=== PATIENT | female | born 1965 | race American Indian/Alaskan Native ===

== ENCOUNTER 2017-06-11 11:26 | Emergency (ER) | payer BC ==
[2017-06-11] MEDS ORDERED: DUONEB *Not for PRN Use IH ONE (14:27)
[2017-06-11 14:30] LABS: Bilirubin,Urine NEG (Negative); Blood,Urine NEG (Negative); Color,Urine Yellow (Yellow); Mucus,Urine FEW /HPF; Nitrite,Urine NEG (Negative); Protein,Urine <15 mg/dL mg/dL (Negative); Urobilinogen,Urine < 2.0 mg/dL (<2.0)
[2017-06-11 14:31] LABS: WBC,Urine < 1.0 /HPF (0.0-6.0)
--- NOTE | 2017-06-11 14:38 | Emergency Department Report ---
Minor Respiratory - HPI Chief Complaint: Upper Respiratory Infection Stated Complaint: ccc. rn on tely Time Seen by Provider: 06/11/17 14:22 Duration: 1 Day Pain Location: Chest Severity: mild Minor Respiratory: Yes Rhinorrhea, Yes Sore Throat, Yes Able to Tolerate Fluids , Yes Cough, Yes Sick Contacts, No Ear Pain, No Hemoptysis, No Chest Pain, No Shortness of Breath, No Fever ED Review of Systems ROS: Stated complaint: CHEST PAIN, COUGH, CONGESTION Other details as noted in HPI Comment: All other systems reviewed and negative Constitutional: see HPI. denies: fever Eyes: as per HPI ENT: as per HPI Respiratory: see HPI, cough Cardiovascular: as per HPI Endocrine: no symptoms reported ED Past Medical Hx - Past Medical History Previous Medical History?: No - Surgical History Additional Surgical History: C SECTION - Social History Smoking Status: Never Smoker Substance Use Type: None - Medications Home Medications: Home Medications Medication Instructions Recorded Confirmed Last Taken Type Benzonatate [Tessalon Perles] 100 mg PO Q8HR PRN #20 capsule 06/11/17 Unknown Rx Cephalexin [Keflex] 500 mg PO Q12HR #20 cap 06/11/17 Unknown Rx Fluticasone [Flonase] 1 spray NS QDAY #1 bottle 06/11/17 Unknown Rx predniSONE [Deltasone] 20 mg PO DAILY #5 tablet 06/11/17 Unknown Rx Minor Respiratory Exam - Exam General: Vital signs noted. No distress. Alert and acting appropriately. HEENT: Yes Pharyngeal Erythema, Yes Moist Mucous Membranes, Yes Frontal Tenderness, Yes Maxillary Tenderness, No Pharyngeal Exudates, No Rhinorrhea, No Conjuctival Injection Ear: Left TM Erythema, Neither TM Bulge, Neither EAC Pain, Neither EAC Discharge Neck: Yes Supple, No Adenopathy Lungs: Yes Good Air Exchange, Yes Ronchi, Yes Cough, No Wheezes, No Stridor, No Labored Respirations, No Retractions, No Use of Accessory Muscles, No Other Abnormal Lung Sounds Heart: Yes Regular, No Murmur Abdomen: Yes Normal Bowel Sounds, No Tenderness, No Peritoneal Signs Skin: No Rash, No Edema Neurologic: Alert and oriented, no deficits. Musculoskeletal: Unremarkable. ED Course Vital Signs 06/11/17 13:00 Temperature 98.8 F Pulse Rate 68 Respiratory 20 Rate Blood Pressure 181/94 O2 Sat by Pulse 99 Oximetry - Reevaluation(s) Reevaluation #1: 06/11/17 to er w urt s/s pt is rn non toxic nonill appearing Reevaluation #2: 06/11/17 15:18 rt called 06/11/17 17:16 feeling better p meds and rt resting quietly updated on findings and plan of care flu neg xray nap vss dc home w dc poc ED Medical Decision Making - Radiology Data Radiology results: report reviewed, image reviewed - Medical Decision Making see note - Differential Diagnosis ro flu v pna v urti in complex care nurse practitioner attestation.: If time is entered above; I have spent that time in minutes in the direct care of this critically ill patient, excluding procedure time. ED Disposition Clinical Impression: Upper respiratory infection, Cough Disposition: DC- TO HOME OR SELFCARE Is pt being admited?: No Does the pt Need Aspirin: No Condition: Stable Instructions: Upper Respiratory Infection (ED), Acute Bronchitis (ED) Additional Instructions: rest hydrate well motrin or tylenol for pain or fever meds as ordered today follow up with PCP on Tuesday good handwashing Prescriptions: Benzonatate [Tessalon Perles] 100 mg PO Q8HR PRN #20 capsule PRN Reason: Cough Cephalexin [Keflex] 500 mg PO Q12HR #20 cap Fluticasone [Flonase] 1 spray NS QDAY #1 bottle predniSONE [Deltasone] 20 mg PO DAILY #5 tablet Referrals: RJ MEYER MD [Primary Care Provider] - 3-5 Days ALEXANDER REILLY MD [Staff Physician] - 3-5 Days Time of Disposition: 15:45
--- NOTE | 2017-06-11 15:00 | XRay Report ---
FINAL REPORT PROCEDURE: XR CHEST ROUTINE 2V TECHNIQUE: AP and lateral chest radiographs were obtained. CPT 17052 HISTORY: Upper Respiratory Infection COMPARISON: No prior studies are available for comparison. FINDINGS: Heart size upper normal. Pulmonary vasculature appears normal. No evidence of pulmonary edema pleural effusion infiltrate or mass. No acute bony abnormalities are identified. IMPRESSION: Heart size upper normal. No acute abnormalities are identified..
[2017-06-11 17:21] VITALS: BP 152/79
== END 2017-06-11 17:21 | disposition home or self-care (01) ==
LOC: ED 11:26
DX: J06.9 Acute upper respiratory infection, unspecified (principal)
CPT/HCPCS: 71046; 81001; 87400; 93005; 93010; 94640; 96372; 99283; J2930

== ENCOUNTER 2017-08-26 08:17 | Outpatient (CLI) | payer BC ==
[2017-08-26 11:03] LABS: Basophils # (Auto) 0.1 K/mm3 (0.0-0.1); Basophils % (Auto) 2.1 % (0.0-1.8); Eosinophils % (Auto) 0.6 % (0.0-4.3); Hematocrit 26.5 % (30.3-42.9); Hemoglobin 8.1 gm/dl (10.1-14.3); Lymphocytes % (Auto) 29.7 % (13.4-35.0); Mean Corpuscular HGB Conc 31 % (30-34); Monocytes # (Auto) 0.5 K/mm3 (0.0-0.8); Monocytes % (Auto) 7.3 % (0.0-7.3); Platelet Count 495 K/mm3 (140-440); Red Blood Count 4.06 M/mm3 (3.65-5.03)
[2017-08-26 11:04] LABS: Mean Corpuscular Hemoglobin 20 pg (28-32); Mean Corpuscular Volume 65 fl (79-97); Red Cell Distribution Width 20.4 % (13.2-15.2)
[2017-08-26 11:19] LABS: Alanine Aminotransferase 10 units/L (7-56); Albumin 4.2 g/dL (3.9-5); BUN/Creatinine Ratio 20; Blood Urea Nitrogen 12 mg/dL (7-17); Calcium 8.9 mg/dL (8.4-10.2); Chol/HDL Ratio 3.69 %; HDL Cholesterol 59 mg/dL (40-59); Hemolysis Index 0; LDL Cholesterol,Direct 151 mg/dL (50-130)
--- NOTE | 2017-08-26 15:24 | Mammography Report ---
BILATERAL DIGITAL SCREENING MAMMOGRAM with CAD: 08/26/17 CLINICAL: Routine screening. COMPARISON:None available. However, a prior mammogram was apparently done at [facility]. FINDINGS: The breasts are heterogeneously dense, which may obscure small masses. Left asymmetries require comparison with a prior mammogram or additional imaging.No architectural distortion or suspicious calcifications.The left breast is negative. IMPRESSION: Left asymmetries requiring further evaluation. BI-RADS CATEGORY: 0 -- Additional Evaluation Required RECOMMENDATION: Comparison with a previous mammogram. We will attempt to obtain a prior mammogram for comparison. If we do not obtain a prior mammogram within 30 days, a revised report will be issued recommending a recall for additional imaging. Please be advised that the patient should not schedule an appointment for return until adequate time (at least 2 weeks) has passed for us to obtain the prior mammogram. ACR BI-RADS MAMMOGRAPHIC CODES: 0 = Needs additional imaging evaluation; 1 = Negative; 2 = Benign; 3 = Probably benign; 4 = Suspicious; 5 = Malignant; 6 = Known biopsy-proven malignancy COMMENT: 1. Dense breast tissue, i.e., adenosis, fibrocystic changes, etc., may obscure an underlying neoplasm. 2. Approximately 10% of cancers are not detected with mammography. 3. A negative mammography report should not delay biopsy if a clinically suspicious mass is present. COMMENT: Patient follow-up letters are generated via our [employer] application.
== END 2017-08-26 08:18 | disposition home or self-care (01) ==
LOC: MAMMO 08:17
PROVIDERS: ATTEND Family Medicine
DX: Z12.31 Encounter for screening mammogram for malignant neoplasm of breast (principal)
CPT/HCPCS: 36415; 77067; 80053; 80061; 84443; 85025

== ENCOUNTER 2017-10-21 14:09 | Outpatient (CLI) | payer BC ==
--- NOTE | 2017-10-22 15:11 | XRay Report ---
FINAL REPORT EXAM: XR CHEST ROUTINE 2V HISTORY: COUGH, CHEST PAIN COMPARISON: 06/11/2017 TECHNIQUE: Frontal and lateral views of the chest. FINDINGS: The cardiomediastinal silhouette is normal in appearance. The lungs are clear without focal consolidation. There is no pleural effusion or pneumothorax. There is no acute soft tissue or osseous abnormality. IMPRESSION: No acute cardiopulmonary disease.
== END 2017-10-21 14:10 | disposition home or self-care (01) ==
LOC: XRAY 14:09
PROVIDERS: ATTEND Family Medicine
DX: R07.89 Other chest pain (principal); R05 Cough
CPT/HCPCS: 71046

== ENCOUNTER 2021-01-12 12:37 | Emergency (ER) | payer OTHER ==
[2021-01-12] MEDS ORDERED: ASPIRIN 325 MG TAB PO ONE (12:49)
[2021-01-12 12:53] VITALS: BP 158/83
--- NOTE | 2021-01-12 12:55 | Emergency Department Report ---
Blank Doc - Documentation Documentation: 55-year-old female that chest pain and tightness in her chest. 1- This is a initial triage assessment/medical screening only. Full assessment and work-up will be completed once the patient is in proper hospital gown, ED bed and in a private room setting. This initial assessment/diagnostic orders/clinical plan/ treatment(s) is/are subject to change based on pt's health status, clinical progression and re-assessment by fellow clinical providers in the ED. Further treatment and workup at subsequent clinical providers discretion. Patient/guardians urged not to elope from ED as their condition may be serious if not clinically assessed and managed. 2-cardiac work-up
--- NOTE | 2021-01-12 13:14 | XRay Report ---
CHEST 2 VIEWS INDICATION: cp. COMPARISON: 10/21/2017 FINDINGS: SUPPORT DEVICES: None. HEART: Within normal limits. LUNGS/PLEURA: No acute air space or interstitial disease. No pneumothorax. ADDITIONAL FINDINGS: None. IMPRESSION: 1. No acute findings. Signer Name: Vitor Lopez MD Signed: 01/12/2021 1:09 PM Workstation Name: [id number]
[2021-01-12 14:23] LABS: INR 1.04 (0.87-1.13)
[2021-01-12 14:24] LABS: Partial Thromboplastin Time 30.6 Sec. (24.2-36.6)
[2021-01-12 14:25] LABS: Basophils # (Auto) 0.1 K/mm3 (0.0-0.1); Basophils % (Auto) 1.3 % (0.0-1.8); Eosinophils # (Auto) 0.1 K/mm3 (0.0-0.4); Eosinophils % (Auto) 0.9 % (0.0-4.3); Hematocrit 38.1 % (30.3-42.9); Hemoglobin 12.6 gm/dl (10.1-14.3); Lymphocytes # (Auto) 2.2 K/mm3 (1.2-5.4); Mean Corpuscular HGB Conc 33 % (30-34); Mean Corpuscular Volume 90 fl (79-97); Monocytes # (Auto) 0.5 K/mm3 (0.0-0.8); Monocytes % (Auto) 7.4 % (0.0-7.3); Platelet Count 349 K/mm3 (140-440); Red Blood Count 4.22 M/mm3 (3.65-5.03); Red Cell Distribution Width 14.5 % (13.2-15.2)
[2021-01-12 14:36] LABS: Alanine Aminotransferase 11 units/L (7-56); Albumin 4.3 g/dL (3.9-5); BUN/Creatinine Ratio 16; Blood Urea Nitrogen 13 mg/dL (7-17); Hemolysis Index 6
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
--- NOTE | 2021-01-13 17:42 | Electrocardiograph Report ---
[facility] Test Date: 2021-01-12 Test Time: 13:17:25 Pat Name: VISHAL AVALOS Department: Room: Gender: F Garment Supervisor: AMARIS : 1965 Requested By: ED DOC Order Number: [id number] Reading MD: Abel Last Measurements Intervals [place] Rate: 74 P: 62 GA: 157 QRS: 43 QRSD: 75 T: 45 QT: 364 QTc: 404 Interpretive Statements Sinus rhythm Low voltage, precordial leads No previous ECG available for comparison Electronically Signed On 01-13-2021 17:42:39 EDT by Abel Last
== END 2021-01-12 18:44 | disposition home or self-care (01) ==
LOC: ED 12:37
DX: R07.89 Other chest pain (principal); I10 Essential (primary) hypertension; Z98.890 Other specified postprocedural states; Z88.8 Allergy status to other drugs, medicaments and biological substances; Z79.899 Other long term (current) drug therapy; V89.2XXA Person injured in unspecified motor-vehicle accident, traffic, initial encounter; Y93.89 Activity, other specified; Y92.488 Other paved roadways as the place of occurrence of the external cause; Y99.8 Other external cause status
CPT/HCPCS: 36415; 71046; 80053; 84484; 85025; 85610; 85730; 93005; 99283